=== PATIENT | female | born 1980 | race Two or more races ===

== ENCOUNTER 2020-11-20 22:22 | Emergency (ER) | payer SELFPAY ==
[~2020-11-20] VITALS: Ht 160 cm; Wt 99.8 kg
[2020-11-20 22:36] VITALS: Ht 160 cm; Wt 99.8 kg
[2020-11-20 23:32] LABS: RDW 20.1 % (11.5-14.5)
[2020-11-20 23:34] LABS: BASOPHILS 0.8 % (0-2); CALC OSMOLALITY 275 mosm/kg (275-300); CALCIUM 7.7 mg/dL (8.5-10.1); CARBON DIOXIDE 27.9 mmol/L (21.0-32.0); CHLORIDE - SERUM 104 mmol/L (98-107); CREATININE - SERUM 0.7 mg/dL (0.6-1.3); EOSINOPHILS 2.6 % (0-7); GLUCOSE 102 mg/dL (74-106); HEMATOCRIT 23.5 % (36.0-48.0); LYMPHOCYTES 21.7 % (15-50); MCHC 30.7 g/dL (31.0-37.0); MCV 59.5 fL (80.0-100.0); MEAN PLATELET VOLUME 9.1 fL (7.4-10.4); MONOCYTES 6.7 % (2-11); NEUTROPHILS 68.2 % (40-80); PLATELET COUNT 229 10x3/uL (130-400); POTASSIUM - SERUM 3.4 mmol/L (3.5-5.1); RBC 3.95 10x6/uL (4.00-5.40); SODIUM 139 mmol/L (136-145); UREA NITROGEN 8 mg/dL (7-18); WBC 7.2 10x3/uL (4.8-10.8); eGFR NON AFRICAN AMERICAN > 90 mL/min (90-120)
[2020-11-20 23:35] LABS: APTT 27.1 SECONDS (22.8-39.4); INR 1.1 (0.85-1.17); PROTIME 13.2 SECONDS (11.6-15.0)
[2020-11-20 23:39] LABS: HEMOGLOBIN 7.2 g/dL (12-16); MCH 18.3 pg (26.0-34.0)
[2020-11-20 23:51] LABS: ALBUMIN 3.2 g/dL (3.4-5.0); ALKALINE PHOSPHATASE 94 U/L (30-120); ALT (SGPT) 30 U/L (10-68); BILIRUBIN - TOTAL 0.19 mg/dL (0.2-1.3); CKMB 0.8 U/L (0.0-3.6); CREATINE KINASE 59 UL (21-215); MAGNESIUM - SERUM 2.3 mg/dL (1.8-2.4)
[2020-11-20 23:52] LABS: TROPONIN-I < 0.017 ng/mL (0.000-0.060)
[2020-11-21 00:38] VITALS: BP 132/77
== END 2020-11-21 00:38 | disposition home or self-care (01) ==
LOC: D.ER 22:22
PROVIDERS: Student in an Organized Health Care Education/Training Program
DX: N64.4 Mastodynia (principal); D64.9 Anemia, unspecified